=== PATIENT | female | born 1975 | race Caucasian/White ===

== ENCOUNTER 2022-08-18 16:02 | Emergency (ER) | payer OTHER ==
[~2022-08-18] VITALS: Ht 162.6 cm; Wt 81.6 kg
[2022-08-18 16:05] VITALS: BP_SYST 102
--- NOTE | 2022-08-18 16:05 | NUR ---
BROUGHT INTO TRIAGE TENT AND TRIAGED. DR BLISS AT BEDSIDE FOR EVALUATION. PT STATES LEFT FLANK PAIN FOR LAST 2 DAYS WITH FEVERS.
[2022-08-18] MEDS ORDERED: KETOROLAC TROMETHAMINE 30 MG VIAL IVP ONE (16:15)
[2022-08-18] MEDS ORDERED: NACL 0.9% 2,000 ML IV ONE (16:15)
[2022-08-18] MEDS ORDERED: cefTRIAXone 1 GM IVPB PREMIX 50 ML IV ONE (16:15)
--- NOTE | 2022-08-18 16:20 | NUR ---
This is a 47-year-old female who is ambulatory to the emergency department presenting for evaluation of fever for the last 2 days. Symptoms began slowly, gradually worsened, and now are of mild to moderate severity. Fever is associated with abdominal pain with radiation to her left flank. She denies hematuria.
[2022-08-18 16:40] LABS: BASOPHILS # (AUTO) 0.1 K/uL (0.0-0.2); BASOPHILS % (AUTO) 0.3 % (0.0-2.0); HEMATOCRIT 39.1 % (36-48); HEMOGLOBIN 12.8 g/dL (12.0-16.0); LYMPHOCYTES # (AUTO) 1.2 K/uL (1.0-5.5); LYMPHOCYTES % (AUTO) 5.7 % (20.5-51.5); MEAN CORPUSCULAR HEMOGLOBIN 25 pg (27-31); MEAN CORPUSCULAR HGB CONC 33 % (32-36); MEAN CORPUSCULAR VOLUME 78 fL (79.0-98.0); MONOCYTES # (AUTO) 1.3 K/uL (0.0-1.0); MONOCYTES % (AUTO) 5.9 % (1.7-9.3); NEUTROPHILS # (AUTO) 19.1 K/uL (1.8-7.7); NEUTROPHILS % (AUTO) 88.1 % (40.0-70.0); PLATELET COUNT (AUTO) 225 K/uL (130-430); RED BLOOD CELL COUNT(AUTO) 5.03 MIL/uL (4.2-6.2); RED CELL DISTRIBUTION WIDTH 15.3 % (9.0-15.0); WHITE BLOOD COUNT (AUTO) 21.7 K/uL (4.8-10.8)
--- NOTE | 2022-08-18 16:58 | NUR ---
BROUGHT BACK TO BED IN [facility], REPORT GIVEN TO NISHANT
[2022-08-18 17:01] LABS: CALCIUM 8.9 mg/dL (8.4-11.0); CREATININE 0.93 mg/dL (0.55-1.30)
[2022-08-18] MEDS ORDERED: ACETAMINOPHEN 500 MG TABLET ONE (17:01)
[2022-08-18 17:12] LABS: ALBUMIN 3.2 g/dL (3.4-4.8); TOTAL BILIRUBIN 1.3 mg/dL (0.0-1.0)
[2022-08-18 18:20] LABS: BILIRUBIN,URINE NEGATIVE (NEGATIVE); CLARITY/URINE CLEAR (CLEAR); COLOR,URINE YELLOW (YELLOW); GLUCOSE,URINE NEGATIVE (NEGATIVE); KETONES,URINE 1+ (NEGATIVE); LEUKOCYTE ESTERASE ,URINE TRACE (NEGATIVE); NITRITE, URINE NEGATIVE (NEGATIVE); PROTEIN URINE NEGATIVE (NEGATIVE)
[2022-08-18 18:30] LABS: BLOOD, URINE TRACE (NEGATIVE)
[2022-08-18 18:36] LABS: BACTERIA,URINE RARE /HPF (None Seen); MUCUS,URINE None Seen /LPF (None Seen)
[2022-08-18] MEDS ORDERED: PHEN-890 PO (19:29)
[2022-08-18] MEDS ORDERED: NITR-85 PO (19:29)
[2022-08-18 19:35] VITALS: BP_SYST 102
--- NOTE | 2022-08-18 19:35 | NUR ---
Patient given written and verbal discharge instructions and verbalizes understanding. ER MD discussed with patient the results and treatment provided. Patient in stable condition. ID arm band removed. Rx of MACROBID AND PYRIDIAM given. Patient educated on pain management and to follow up with PMD. Opportunity for questions provided and answered. Medication side effect fact sheet provided.
== END 2022-08-18 19:35 | disposition home or self-care (01) ==
LOC: SED 16:02
DX: N39.0 Urinary tract infection, site not specified (principal); R50.9 Fever, unspecified; R10.9 Unspecified abdominal pain; Z79.899 Other long term (current) drug therapy
CPT/HCPCS: 99284; 96365; 96361; 80053; 81000; 85025; 87040; 36415; 83605; J0696; J7030